=== PATIENT | male | born 1970 | race Caucasian/White ===

== ENCOUNTER 2017-07-31 07:59 | Emergency (ER) | payer OTHER ==
[~2017-07-31] VITALS: Ht 170.2 cm; Wt 70.8 kg
[2017-07-31 08:48] LABS: ABSOLUTE BASOPHILS 0.1 thou/uL (0.0-0.2); ABSOLUTE EOSINOPHILS 0.1 thou/uL (0.0-0.7); ABSOLUTE LYMPHOCYTES 1.6 thou/uL (0.8-5.3); ABSOLUTE MONOCYTES 0.8 thou/uL (0.0-1.2); ABSOLUTE NEUTROPHILS 10.1 thou/uL (1.6-8.1); BASOPHILS 0.7 %; EOSINOPHILS 0.6 %; HEMATOCRIT 48.2 % (42.0-52.0); HEMOGLOBIN 16.8 gm/dL (14.0-18.0); LYMPHOCYTES 12.8 %; MCH 28.8 pg (26.0-34.0); MCHC 34.9 g/dL (28.0-37.0); MCV 82.6 fL (80.0-100.0); NUCLEATED RBCS 0 /100WBC; PLATELET COUNT* 351 thou/uL (150-400); POLYS 79.9 %; RBC 5.84 mil/uL (4.50-6.00); RDW-CV 12.6 % (10.5-14.5); WBC 12.6 thou/uL (4.0-11.0)
[2017-07-31 08:58] LABS: CALCIUM 9.5 mg/dL (8.5-10.1); POTASSIUM 3.9 mmol/L (3.5-5.1)
[2017-07-31 09:11] LABS: ALBUMIN 4.4 g/dL (3.4-5.0); TOTAL BILIRUBIN 0.3 mg/dL (<0.1-1.0); TOTAL PROTEIN 7.6 g/dL (6.4-8.2)
[2017-07-31 09:26] VITALS: BP 130/70
--- NOTE | 2017-07-31 13:57 | EKG ---
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
== END 2017-07-31 09:27 | disposition home or self-care (01) ==
LOC: M.ERS 07:59
PROVIDERS: Personal Emergency Response Attendant
DX: Z71.1 Person with feared health complaint in whom no diagnosis is made (principal)

== ENCOUNTER → 2017-08-22 | Outpatient (CLI) | payer OTHER | LOC: M.RAD 16:01 | DX: R10.9 Unspecified abdominal pain (principal) ==

== ENCOUNTER → 2017-11-10 | Outpatient (CLI) | payer OTHER | LOC: M.RAD 16:04 | DX: R04.2 Hemoptysis (principal) ==

== ENCOUNTER 2019-06-12 20:12 | Emergency (ER) | payer OTHER ==
[~2019-06-12] VITALS: Ht 170.2 cm; Wt 77.1 kg
[2019-06-12 21:50] LABS: ABSOLUTE BASOPHILS 0.1 thou/uL (0.0-0.2); ABSOLUTE EOSINOPHILS 0.1 thou/uL (0.0-0.7); ABSOLUTE LYMPHOCYTES 1.6 thou/uL (0.8-5.3); ABSOLUTE MONOCYTES 0.5 thou/uL (0.0-1.2); ABSOLUTE NEUTROPHILS 2.4 thou/uL (1.6-8.1); BASOPHILS 1.6 %; EOSINOPHILS 1.3 %; HEMATOCRIT 43.5 % (42.0-52.0); LYMPHOCYTES 35.3 %; MCH 28.3 pg (26.0-34.0); MCHC 34.6 g/dL (28.0-37.0); MCV 81.9 fL (80.0-100.0); MPV 7.5 fl. (7.2-11.1); NUCLEATED RBCS 0 /100WBC; PLATELET COUNT* 363 thou/uL (150-400); POLYS 51.8 %; RBC 5.31 mil/uL (4.50-6.00); RDW-CV 12.5 % (10.5-14.5); WBC 4.6 thou/uL (4.0-11.0)
[2019-06-12 21:56] LABS: CALCIUM 8.7 mg/dL (8.5-10.1); CREATININE 0.9 mg/dL (0.6-1.3); POTASSIUM 3.3 mmol/L (3.5-5.1)
[2019-06-12 22:02] LABS: ALBUMIN 3.9 g/dL (3.4-5.0); TOTAL BILIRUBIN 0.2 mg/dL (<0.1-1.0); TOTAL PROTEIN 7.4 g/dL (6.4-8.2)
[2019-06-12] MEDS ORDERED: MEDROLDOSEPACK PO (22:55)
[2019-06-12 23:05] VITALS: BP 127/74
--- NOTE | 2019-06-13 16:57 | EKG ---
[place] [address] ELECTROCARDIOGRAM REPORT Name: SANDRA ZUNIGA 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: : 1970 Requested By: Jyoti Harley Order Number: [id number] MD: Evaristo Cabrales Measurements Intervals [place] Rate: 71 P: 50 MO: 163 QRS: 58 QRSD: 91 T: 30 QT: 392 QTc: 426 Interpretive Statements Sinus rhythm RSR' in V1 or V2, right VCD or RVH Compared to ECG 07/31/2017 08:42:19 Right ventricular hypertrophy now present RSR' in V1 or V2 now present Electronically Signed On 06-13-2019 16:56:55 [employer] SPECIALIST by Evaristo Cabrales [email or web address] <ELECTRONICALLY SIGNED> By: Evaristo Cabrales MD, FAC 06/13/19 0344 30 30 Evaristo Cabrales MD, [facility] /EPI
== END 2019-06-12 23:05 | disposition home or self-care (01) ==
LOC: M.ERS 20:12
PROVIDERS: Personal Emergency Response Attendant
DX: R20.2 Paresthesia of skin (principal)